=== PATIENT | male | born 1980 | race Caucasian/White ===

== ENCOUNTER 2016-12-28 19:48 | Emergency (ER) | payer OTHER ==
[2016-12-28 20:26] VITALS: BP 106/82; PULSE 73; TEMP 97.8; BMI 28.4
--- NOTE | 2016-12-28 20:32 | PDOC ---
History of Present Illness - General History Source: Patient Exam Limitations: No Limitations - History of Present Illness Initial Comments: 12/28/16 21:33 The patient is a 36 year old male, with no significant past medical history, who presents to the emergency department complaining of mid back pain for 3 days. He states the pain is constant and radiates into his left side. He reports the pain intermittently shoots down his left leg.The patient reports no alleviating or exacerbating factors. He states he tries not to lift anything heavy, and denies any recent trauma to the back. The patient reports dysuria, but denies hematuria, frequency, or urgency. He reports associated nausea, but denies abdominal pain, vomiting, diarrhea, or constipation. The patient states he has a family history of kidney cysts, and decided to get an ultrasound of his kidneys, which revealed no acute pathology. The patient denies any fever, chills, cough, headache, or dizziness. The patient denies any chest pain, palpitations, diaphoresis, or SOB. The patient denies any recent travel or sick contacts. Allergies: None reported. Past Surgical History: None reported. Social History: Social ETOH consumer and occasional smoker. Denies recreational drug use. Family History: Father and Grandfather: Kidney cysts. PCP: Dr. Shantel Menjivar <Manny Love - Last Filed: 12/28/16 22:00> <Za Hernandez - Last Filed: 12/28/16 22:15> - General Chief Complaint: Back Pain Stated Complaint: POSS KIDNEY STONES Time Seen by Provider: 12/28/16 20:32 Past History <Manny Love - Last Filed: 12/28/16 22:00> - Immunization History Immunization Up to Date: Yes - Psycho/Social/Smoking Cessation Hx Anxiety: No Suicidal Ideation: No Smoking History: Current some day smoker Number of Cigarettes Smoked Daily: 1 Information on smoking cessation initiated: No Hx Alcohol Use: Yes (occasion) Substance Use Type: None <Za Hernandez - Last Filed: 12/28/16 22:15> - Past Medical History Allergies/Adverse Reactions: Allergies Allergy/AdvReac Type Severity Reaction Status Date / Time No Known Allergies Allergy Verified 12/28/16 20:18 Home Medications: Ambulatory Orders NK [No Known Home Medication] 12/28/16 Review of Systems - Review of Systems Able to Perform ROS?: Yes Comments:: 12/28/16 21:34 GENERAL/CONSTITUTIONAL: No fever or chills. No weakness. HEAD, EYES, EARS, NOSE AND THROAT: No change in vision. No ear pain or discharge. No sore throat. CARDIOVASCULAR: No chest pain or shortness of breath. RESPIRATORY: No cough, wheezing, or hemoptysis. GASTROINTESTINAL: +Nausea. No vomiting, diarrhea or constipation. GENITOURINARY: +Dysuria. No frequency, or change in urination. MUSCULOSKELETAL: +Mid back pain, that occasionally radiates into his left side and shoots down his left leg. No joint or muscle swelling. No neck pain. SKIN: No rash NEUROLOGIC: No headache, vertigo, loss of consciousness, or change in strength/ sensation. ENDOCRINE: No increased thirst. No abnormal weight change. HEMATOLOGIC/LYMPHATIC: No anemia, easy bleeding, or history of blood clots. ALLERGIC/IMMUNOLOGIC: No hives or skin allergy. <Manny Love - Last Filed: 12/28/16 22:00> *Physical Exam - Vital Signs Last Vital Signs Temp Pulse Resp BP Pulse Ox 97.8 F 73 18 106/82 98 12/28/16 20:21 12/28/16 20:21 12/28/16 20:21 12/28/16 20:21 12/28/16 20:21 - Physical Exam Comments: 12/28/16 21:34 GENERAL: Awake, alert, and fully oriented, in no acute distress HEAD: No signs of trauma EYES: PERRLA, EOMI, sclera anicteric, conjunctiva clear ENT: Auricles normal inspection, hearing grossly normal, nares patent, oropharynx clear without exudates. Moist mucosa NECK: Normal ROM, supple, no lymphadenopathy, JVD, or masses LUNGS: Breath sounds equal, clear to auscultation bilaterally. No wheezes, and no crackles HEART: Regular rate and rhythm, normal S1 and S2, no murmurs, rubs or gallops ABDOMEN: +Mild tenderness to the suprapubic region. Soft, normoactive bowel sounds. No guarding, no rebound. No masses. Negative Psoas sign. EXTREMITIES: Normal range of motion, no edema. No clubbing or cyanosis. No cords, erythema, or tenderness. No gross deformities or tenderness to palpation in the back. NEUROLOGICAL: Cranial nerves II through XII grossly intact. Normal speech, normal gait SKIN: Warm, Dry, normal turgor, no rashes or lesions noted. <Manny Love - Last Filed: 12/28/16 22:00> - Vital Signs Last Vital Signs Temp Pulse Resp BP Pulse Ox 97.8 F 73 18 106/82 98 12/28/16 20:21 12/28/16 20:21 12/28/16 20:21 12/28/16 20:21 12/28/16 20:21 <Za Hernandez - Last Filed: 12/28/16 22:15> ED Treatment Course - LABORATORY CBC & Chemistry Diagram: 12/28/16 20:51 12/28/16 20:51 - RADIOLOGY Radiograph Interpretation: 12/28/16 22:00 EXAM: Abdomen and pelvis CT INTERPRETED BY: Dr. Santos REVIEWED BY: Dr. Hernandez IMPRESSION: Normal CT scan of the abdomen and pelvis with no evidence of urinary tract calculi, obstructive uropathy or acute pathology. <Manny Love - Last Filed: 12/28/16 22:00> - LABORATORY CBC & Chemistry Diagram: 12/28/16 20:51 12/28/16 20:51 <Za Hernandez - Last Filed: 12/28/16 22:15> Medical Decision Making - Medical Decision Making 12/28/16 22:12 Pt comes with flank pain and side pain and a hot sensation on his side. He also has a hot sensation when he urinates. UA is normal, no bleeding; Spiral CT scan shows no stone. Pt's dad and grandad have history of cysts on the kidney; he has no cysts, and his BUN/Cr are normal; and CBC is normal. He will be discharged home. He has a positive right straight leg test. At 70 degrees, he experiences pain in the left low back. <Za Hernandez - Last Filed: 12/28/16 22:15> *DC/Admit/Observation/Transfer - Attestations Scribe Attestion: 12/28/16 21:34 Documentation prepared by Manny Love, acting as medical director occupational health for Za Hernandez MD. <Manny Love - Last Filed: 12/28/16 22:00> - Discharge Dispostion Admit: No <Za Hernandez - Last Filed: 12/28/16 22:15> Diagnosis at time of Disposition: Back pain, Paresthesia, Sciatic leg pain - Discharge Dispostion Disposition: HOME Condition at time of disposition: Stable - Referrals Referrals: Shantel Menjivar [Primary Care Provider] - Kota Felton MD [Staff Physician] - - Patient Instructions Printed Discharge Instructions: DI for Back Pain With Sciatica
[2016-12-28 21:44] LABS: BASOPHIL 0.9 % (0-2.0); EOSINOPHIL 5.3 % (0-4.5); MCH 28.6 pg (25.7-33.7); MCHC 34.5 g/dl (32.0-35.9); MEAN CELL VOLUME 82.9 fl (80-96); MEAN PLT VOLUME 9.8 fl (7.5-11.1); NEUTROPHILS 56.1 % (42.8-82.8); PLATELET COUNT 196 K/MM3 (134-434); RDW 13.3 % (11.9-15.9)
[2016-12-28 22:04] LABS: URINE APPEARANCE CLEAR; URINE BILIRUBIN NEGATIVE (NEGATIVE); URINE BLOOD NEGATIVE (NEGATIVE); URINE COLOR STRAW; URINE GLUCOSE (UA) NEGATIVE (NEGATIVE); URINE KETONE NEGATIVE (NEGATIVE); URINE LEUK ESTERASE NEGATIVE (NEGATIVE); URINE NITRITE NEGATIVE (NEGATIVE); URINE PROTEIN NEGATIVE (NEGATIVE); URINE UROBILINOGEN NEGATIVE E.U./dl (0.2-1.0)
[2016-12-28 22:08] LABS: ALBUMIN 4.4 g/dl (3.4-5.0); ALK PHOS 79 U/L (45-117); ANION GAP 10 (8-16); CALCIUM 8.9 mg/dL (8.5-10.1); CO2 28 mmol/L (21-32); CREATININE 0.9 mg/dL (0.7-1.3); GLUCOSE,RANDOM 80 mg/dL (74-106); SGOT/AST 24 U/L (15-37); SGPT/ALT 37 U/L (12-78)
[2016-12-28 22:09] LABS: BILIRUBIN,TOTAL 0.5 mg/dL (0.2-1.0); TOT PROT 7.9 g/dl (6.4-8.2)
== END 2016-12-28 22:48 | disposition home or self-care (01) ==
LOC: JER 19:48
DX: M54.42 Lumbago with sciatica, left side (principal); R20.0 Anesthesia of skin
CPT/HCPCS: 36415; 74176; 80053; 81003; 85025; 87086; 99284-25

== ENCOUNTER 2023-11-07 16:24 | Emergency (ER) | payer OTHER ==
[2023-11-07 16:36] VITALS: BMI 65.6
[2023-11-07] MEDS ORDERED: SODIUM CHLORIDE 1,000 ML IV STA (17:23)
[2023-11-07 18:38] LABS: EOS % 7.1 % (0-4.5); HEMATOCRIT 41.5 % (35.4-49); HEMOGLOBIN 14.4 GM/dL (11.7-16.9); LYMPH % 30.7 % (8-40); MCH 28.5 pg (25.7-33.7); MCHC 34.6 g/dl (32.0-35.9); MEAN CELL VOLUME 82.4 fl (80-96); MEAN PLT VOLUME 9.5 fl (7.5-11.1); MONO % 5.8 % (3.8-10.2); NEUT % 55.4 % (42.8-82.8); PLATELET COUNT 211 10^3/uL (134-434); RBC 5.03 M/mm3 (4.00-5.60); RDW 13.4 % (11.9-15.9); WHITE BLOOD COUNT 8.6 K/mm3 (4.0-10.0)
[2023-11-07 18:39] LABS: URINE APPEARANCE CLEAR; URINE BILIRUBIN NEGATIVE (NEGATIVE); URINE COLOR YELLOW; URINE GLUCOSE (UA) NEGATIVE (NEGATIVE); URINE KETONE NEGATIVE (NEGATIVE); URINE LEUK ESTERASE NEGATIVE (NEGATIVE); URINE NITRITE NEGATIVE (NEGATIVE); URINE PROTEIN NEGATIVE (NEGATIVE)
[2023-11-07 18:52] LABS: POTASSIUM 3.8 mmol/L (3.5-5.1)
[2023-11-07 18:54] LABS: ALBUMIN 3.5 g/dl (3.4-5.0); BLOOD UREA NITROGEN 17.7 mg/dL (7-18); CALCIUM 8.1 mg/dL (8.5-10.1)
[2023-11-07 18:58] LABS: CREATININE 0.8 mg/dL (0.55-1.3)
[2023-11-07 19:00] LABS: BILIRUBIN,TOTAL 0.2 mg/dL (0.2-1); TOT PROT 6.9 g/dl (6.4-8.2)
[2023-11-07 20:55] VITALS: BP 127/78; PULSE 55; RESP 18; TEMP 98.2
== END 2023-11-07 21:47 | disposition home or self-care (01) ==
LOC: JER 16:24
PROC: 3E0337Z Introduction of Electrolytic and Water Balance Substance into Peripheral Vein, Percutaneous Approach (ICD-10-PCS; principal; 2023-11-07)
DX: R10.30 Lower abdominal pain, unspecified (principal)
CPT/HCPCS: 36415; 74177-TC; 80053; 81003; 83690; 85025; 87086; 87491; 87591; 99285-25